=== PATIENT | female | born 1950 | race Caucasian/White ===

== ENCOUNTER → 2020-12-20 | Outpatient (CLI) | payer OTHER | END | disposition home or self-care (01) | LOC: RAD 07:52 → TOM 07:52 | DX: K76.0 Fatty (change of) liver, not elsewhere classified (principal); K44.9 Diaphragmatic hernia without obstruction or gangrene; R19.4 Change in bowel habit; Z86.010 Personal history of colon polyps; Z79.01 Long term (current) use of anticoagulants; I48.0 Paroxysmal atrial fibrillation ==